=== PATIENT | female | born 1980 | race Caucasian/White ===

== ENCOUNTER 2017-02-11 10:35 | Emergency (ER) | payer OTHER ==
[~2017-02-11] VITALS: Ht 166.4 cm; Wt 75.1 kg
[~2017-02-11 10:35] MED LIST: ACYC-113 PO; AMOX1TAB61 PO; AMOX1TAB64 PO; CARI250T PO; DIAZ10TA PO; DOXY100T PO; HYDR-3307 PO; HYDR1TAB12 PO; IBUP200C8 PO; PENI500T PO; SULF1TAB24 PO
[2017-02-11 10:48] VITALS: BP 143/94
[2017-02-11 12:01] LABS: HEMATOCRIT 41.2 % (34.6-47.8); HEMOGLOBIN 14.2 g/dL (11.7-16.4); WHITE BLOOD COUNT 6.3 x10^3/uL (3.4-10)
== END 2017-02-11 13:30 | disposition home or self-care (01) ==
LOC: ED 13:12
DX: N61.0 Mastitis without abscess (principal)
CPT/HCPCS: 36415; 76642; 85025; 99285